=== PATIENT | male | born 1985 | race Caucasian/White ===

== ENCOUNTER 2020-01-01 08:20 | Emergency (ER) | payer BC, OTHER ==
--- NOTE | 2020-01-01 08:51 | EDM.PDOC ---
ED HPI GENERAL MEDICAL PROBLEM - General Chief Complaint: Respiratory Problem Stated Complaint: FEVER/DRY COUGH Time Seen by Provider: 01/01/20 08:39 - History of Present Illness INITIAL COMMENTS - FREE TEXT/NARRATIVE: History of present illness: 34-year-old male presenting with fevers and feeling ill since yesterday. Apparently when he got home from work yesterday he felt really tired, thought he had overworked and so he just laid down and took a nap, however he still was not feeling well when he got up. Then in the middle the night around 2 AM he suddenly woke up with chills and checked his temperature and it was 101. His significant other is a healthcare worker at this hospital on the [employer] floor. He does report he has a history of asthma and that his breathing has been slightly worse than usual though no significant respiratory distress or chest pain or cough. Has not had any significant body aches but does feel some mild pain and felt that he may have slept wrong on his neck. Denies any headache or neck stiffness. No nausea or vomiting. He did take his usual inhalers and felt better. Review of systems: As per history of present illness and below otherwise all systems reviewed and negative. Past medical history: As per history of present illness and as reviewed below otherwise noncontributory. Asthma Surgical history: As per history of present illness and as reviewed below otherwise non contributory. Social history: No reported history of drug or alcohol abuse. Family history: As per history of present illness and as reviewed below otherwise noncontributory. Physical exam: GEN: no acute distress, well appearing HEENT: Atraumatic, normocephalic, mucous membranes moist Neck: supple. Lungs: No respiratory distress. O2 saturation 97% on room air Heart: RRR Extremities: Atraumatic. Neurovascularly intact. Neuro: Awake, alert, oriented. Neuro Exam nonfocal. Skin: warm, dry, no lesions Diagnostics: Chest x-ray, COVID-19 swab Therapeutics: Declined any medications at this time MDM: Patient with COVID-19 risk factors and some difficulty breathing and fever. Significant other does work in healthcare. Patient slightly higher risk due to underlying asthma status. O2 sat 97% on room air and in no respiratory distress. Plan chest x-ray and COVID swab. At this time the patient is feeling well and declines any other medication intervention or lab work. Chest x-ray does show possible area of small pneumonia in the left lower lobe. Will treat with azithromycin as the patient is otherwise healthy and low risk for complicated pneumonia. Impression: Pneumonia Plan: [] Definitive disposition and diagnosis as appropriate pending reevaluation and review of above. - Related Data Allergies Allergy/AdvReac Type Severity Reaction Status Date / Time No Known Allergies Allergy Verified 01/01/20 08:51 Home Meds: Home Meds Albuterol Sulfate [Proventil Hfa] 1 dose INH ASDIRECTED 01/01/20 [History] Azithromycin [Zithromax] 250 mg PO DAILY #6 tab 01/01/20 [Rx] Fluticasone Propion/Salmeterol [Advair 250-50 Diskus] 1 dose INH DAILY 01/01/20 [History] Montelukast [Singulair] 10 mg PO DAILY 01/01/20 [History] ED ROS GENERAL - Review of Systems Review Of Systems: See Below (See HPI) ED EXAM, GENERAL - Physical Exam Exam: See Below (See HPI) Course - Vital Signs Text/Narrative:: Mild dyspnea, fevers and feeling unwell. Patient in no respiratory distress with O2 saturation 97% on arrival and throughout emergency department stay. Chest x-ray with likely small left lower lobe pneumonia. Cover with antibiotics. COVID-19 swab negative. Last Recorded V/S: Last Vital Signs Temp 99.7 F 01/01/20 08:38 Pulse 91 01/01/20 10:11 Resp 16 01/01/20 10:11 BP 160/107 H 01/01/20 10:11 Pulse Ox 96 01/01/20 10:11 - Orders/Labs/Meds Labs: Laboratory Tests 01/01/20 Range/Units 08:50 COVID-19 (FREDIS) NEGATIVE (NEGATIVE) Meds: Medications Discontinued Medications Generic Name Dose Route Start Last Admin Trade Name Freq PRN Reason Stop Dose Admin Azithromycin 500 mg 01/01/20 10:01 01/01/20 10:11 Zithromax PO 01/01/20 10:02 500 mg ONETIME ONE Administration - Re-Assessments/Exams Free Text/Narrative Re-Assessment/Exam: 01/01/20 10:15 Feeling well. No acute distress. O2 saturations still 97%. Results and plan of care discussed with the patient. Discussed self-isolation. Patient's COVID swab is negative, however there is a possibility of swab negative COVID. As the patient is in no acute distress he would meet criteria for outpatient treatment. 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 Departure - Departure Time of Disposition: 10:16 Disposition: Home, Self-Care 01 Clinical Impression: Pneumonia Qualifiers: Pneumonia type: due to unspecified organism Laterality: left Lung location: lower lobe of lung Qualified Code(s): J18.9 - Pneumonia, unspecified organism - Discharge Information Prescriptions: Azithromycin [Zithromax] 250 mg PO DAILY #6 tab Instructions: Asthma, Adult, COVID-19 Frequently Asked Questions, COVID-19, Upper Respiratory Infection, Adult, [id number], COVID-19: How to Protect Yourself and Others - CDC, Community-Acquired Pneumonia, Adult, [id number], Prevent the Spread of COVID-19 if You Are Sick - [facility] Referrals: PCP,None [Primary Care Provider] - Forms: ED Department Discharge Additional Instructions: Please self isolate for 1 week. Please take the azithromycin until all pills are gone, you have received your first days dose, today's dose already and therefore your next dose will be tomorrow. Please go to the [facility] for repeat COVID swab in 4 days. The following information is given to patients seen in the emergency department who are being discharged to home. This information is to outline your options f or follow-up care. We provide all patients seen in our emergency department with a follow-up referral. The need for follow-up, as well as the timing and circumstances, are variable depending upon the specifics of your emergency department visit. If you don't have a primary care physician on staff, we will provide you with a referral. We always advise you to contact your personal physician following an emergency department visit to inform them of the circumstance of the visit and for follow-up with them and/or the need for any referrals to a consulting specialist. The emergency department will also refer you to a specialist when appropriate. This referral assures that you have the opportunity for follow-up care with a specialist. All of these measure are taken in an effort to provide you with optimal care, which includes your follow-up. Under all circumstances we always encourage you to contact your private physician who remains a resource for coordinating your care. When calling for follow-up care, please make the office aware that this follow-up is from your recent emergency room visit. If for any reason you are refused follow-up, please contact the [facility] Emergency Department at and asked to speak to the emergency department charge nurse. Zack Braggs [facility] - Primary Care [address] [place] [phone]
--- NOTE | 2020-01-01 09:55 | CR ---
Chest: 2 views of the chest were obtained. Comparison: No previous chest imaging is available. Small area of consolidation is noted within the anterior left lower lung. Right lung is clear. Heart size and mediastinum are normal. Bony structures are unremarkable. Impression: 1. Small area of consolidation within the anterior left lower lung. Findings most likely representing small area of pneumonia. Please correlate if this matches patient's clinical symptoms. Diagnostic code #3 This report was dictated in MDT
[2020-01-01] MEDS ORDERED: Azithromycin 250 MG Tab PO ONE (10:01)
== END 2020-01-01 10:28 | disposition home or self-care (01) ==
LOC: MW.ED 08:20
DX: J18.9 Pneumonia, unspecified organism (principal); Z20.828 Contact with and (suspected) exposure to other viral communicable diseases; Z79.899 Other long term (current) drug therapy
CPT/HCPCS: 71046; 87635; 99283; A9270; U0002